=== PATIENT | female | born 1995 | race Caucasian/White ===

== ENCOUNTER → 2017-07-09 | Outpatient (CLI) | payer OTHER | END | disposition left against medical advice (07) | LOC: OBS/DEL 06:47 | DX: O26.892 Other specified pregnancy related conditions, second trimester (principal); R10.13 Epigastric pain; Z34.02 Encounter for supervision of normal first pregnancy, second trimester ==

== ENCOUNTER 2017-10-10 15:31 | Inpatient (IN) | payer OTHER ==
[~2017-10-10] VITALS: Ht 167.6 cm; Wt 148.0 kg
[2017-10-16] MEDS ORDERED: PRENATAL TABLE1 EAC2 PO (15:04)
== END 2017-10-18 14:00 | disposition home or self-care (01) | DRG 775 ==
LOC: LDR → EDBD → LDR 10-16 14:57 → OB/GYN 10-17 01:58 → LDR 10-18 15:28
PROC: 10E0XZZ Delivery of Products of Conception, External Approach (ICD-10-PCS; principal; 2017-10-16)
PROC: 10907ZC Drainage of Amniotic Fluid, Therapeutic from Products of Conception, Via Natural or Artificial Opening (ICD-10-PCS; 2017-10-16)
PROC: 3E033VJ Introduction of Other Hormone into Peripheral Vein, Percutaneous Approach (ICD-10-PCS; 2017-10-16)
PROC: 4A033R1 Measurement of Arterial Saturation, Peripheral, Percutaneous Approach (ICD-10-PCS; 2017-10-16)
PROC: 4A1HXCZ Monitoring of Products of Conception, Cardiac Rate, External Approach (ICD-10-PCS; 2017-10-16)
DX: O80 Encounter for full-term uncomplicated delivery (principal); Z3A.39 39 weeks gestation of pregnancy; Z37.0 Single live birth

== ENCOUNTER 2017-10-16 13:23 | Outpatient (CLI) | payer OTHER ==
[2017-10-16] MEDS ORDERED: PRENATAL TABLE1 EAC2 PO (15:04)
== END 2017-10-16 15:08 | disposition still patient (30) ==
LOC: OBS/DEL 13:23
DX: O47.1 False labor at or after 37 completed weeks of gestation (principal); Z34.03 Encounter for supervision of normal first pregnancy, third trimester